=== PATIENT | male | born 1950 | race Caucasian/White ===

== ENCOUNTER 2023-11-19 10:44 | Outpatient (OUT) | payer MEDICARE, SELFPAY ==
--- NOTE | 2023-11-19 | XR_ITS ---
[address] [address] Patient Name: KARSON PAVON MRN: [id number] date: 1950 Sex: M Assigned Patient Location: Current Patient Location: Accession/Order Number: [id number] Exam Date: 11/19/2023 11:15 Report Date: 11/22/2023 09:01 At the request of: NAM CALL Procedure: XR lumbar spine min 4V EXAMINATION: XR lumbar spine min 4V HISTORY: LUMBAR SPINE PAIN COMPARISON: CT lumbar spine 01/18/2014 FINDINGS: BONES: Anterior listhesis of L5 on S1 secondary to bilateral pars interarticularis defects. 8 mm anterior listhesis during neutral position which decreases to 6 mm during flexion and extension. Moderate degenerative facet arthropathy L4-5, L5-S1. DISC SPACES: Marked narrowing L3-4, L4-5. Moderate narrowing L2-3. PARASPINOUS: Negative. No paraspinous abnormality is seen. OTHER: Negative. XR/XR lumbar spine min 4V IMPRESSION: 1. Grade 1 anterolisthesis of L5 on S1 secondary to bilateral pars interarticularis defects with slight reduction in the amount of listhesis during flexion and extension. 2. Multilevel moderate-marked degenerative disc disease; progressed since prior study. Electronically authenticated by: TAL CASTELLANO Date: 11/22/2023 09:01
== END 2023-11-19 10:45 | disposition home or self-care (01) ==
LOC: EC 10:44
PROVIDERS: Visit Provider Orthopaedic Surgery Orthopaedic Surgery of the Spine
DX: M54.50 Low back pain, unspecified (principal); M51.36 Other intervertebral disc degeneration, lumbar region
CPT/HCPCS: 72110